=== PATIENT | female | born 1985 | race Two or more races ===

== ENCOUNTER 2022-11-22 01:33 | Emergency (ER) | payer MEDICAID, OTHER ==
[~2022-11-22] VITALS: Ht 165.1 cm; Wt 70.0 kg
[2022-11-22 01:56] VITALS: BP 130/80
[2022-11-22] MEDS ORDERED: LORazepam 1 MG TABLET PO ONE (02:30)
[2022-11-22] MEDS ORDERED: LORazepam 0.5 MG TABLET PO ONE (02:45)
== END 2022-11-22 03:26 | disposition home or self-care (01) ==
LOC: EMS 01:38
DX: F41.9 Anxiety disorder, unspecified (principal); F31.9 Bipolar disorder, unspecified; I10 Essential (primary) hypertension; F15.10 Other stimulant abuse, uncomplicated
CPT/HCPCS: 71045; 93005; 99283; 36415-L1; 36415-TC